=== PATIENT | male | born 1990 | race Caucasian/White ===

== ENCOUNTER 2016-07-05 15:40 | Emergency (ER) | payer BC ==
[~2016-07-05] VITALS: Ht 180.3 cm; Wt 84.8 kg
[2016-07-05 15:50] VITALS: TEMP 36.6; Ht 180.3 cm; Wt 84.8 kg
[2016-07-05] MEDS ORDERED: SODIUM CHLORIDE 0.9% 1000ML 1,000 ML IV STA ×3 (16:15→17:56)
[2016-07-05] MEDS ORDERED: INSPMPHMLG (16:19)
[2016-07-05] MEDS ORDERED: BENZ100C84 PO (16:19)
[2016-07-05] MEDS ORDERED: PRVHFAIN INH (16:19)
[2016-07-05] MEDS ORDERED: GUAI1SOL5 PO (16:19)
[2016-07-05] MEDS ORDERED: PRED10TA PO (16:19)
--- NOTE | 2016-07-05 16:26 | EMERGENCY ROOM VISIT NOTE ---
History Report prepared by Viviane: Wade Salcido Under the Supervision of: Dr. Joby Giraldo M.D. First contact with patient: 16:09 Chief Complaint: HYPERGLYCEMIA Stated Complaint: 400+ BLOOD SUGAR, CONSTANT THIRST/URINATION, COUGH Nursing Triage Summary: patient to ed via triage, states "I think I have DKA, my sugars are over three hundred all week, I can't et it down." Patient is type one diabetic, recently changed insulin pump, states "I don't think that is the problem, I just saw the doctor and they told me my sugars were going up and they just aren't controlled." Patient recently diagnosed with URI, states "I've been on a lot of meds for that." c/o thirst, urination, weakness History of Present Illness The patient is a 25 year old male who presents to the Emergency Room with complaints of hyperglycemia that began 1 week ago. The patient saw his PCP for an upper respiratory problem and cough last week. He was given Prednisone, a cough syrup, and an inhaler. Since he began taking these medications, his blood sugars have been above 300, when they are usually in the 100s. He has a history of Type 1 Diabetes for 14 years. He woke up today with a blood sugar level above 400. He notes that he changed his pump today, but states his sugar is still high. He notes that his cough is better. He is experiencing thirst, dryness, and frequent urination. He does not have a ketone grayson with him currently. He does not have a history of asthma. He has never had full blown DKA before. He stopped taking his Prednisone yesterday. Source of History: patient Onset: 1 week ago Position: other (global) Symptom Intensity: 400+ Quality: other (Hyperglycemia) Timing: worsening Associated Symptoms: + cough, + urinary symptoms (Frequent urination), No SOB Note: He is experiencing dryness and thirst. Review of Systems See HPI for pertinent positives & negatives. A total of 10 systems reviewed and were otherwise negative. Past Medical & Surgical Medical Problems: (1) Type 1 diabetes Family History Patient reports no known family medical history. Social History Smoking Status: Never Smoker Smokeless Tobacco Use: No Drug Use: none Marital Status: single Occupation Status: student Current/Historical Medications Scheduled Insulin Human Lispro (Insulin Humalog Pump ), 1 EA N/A UD Prednisone Tab (Prednisone), 10 MG PO UD Scheduled PRN Albuterol (Ventolin Hfa), 2 PUFFS INH Q4H PRN for Cough Benzonatate (Tessalon Perles), 100 MG PO TID PRN for Cough Guaifenesin-Codeine (Codeine/Guaifenesin 100-10 mg/5Ml), 5 ML PO Q4-6HRS PRN for Cough Allergies Coded Allergies: Amoxicillin (Verified Allergy, Intermediate, Hives, 07/05/16) Cefprozil (Verified Allergy, Intermediate, Hives, 07/05/16) Penicillins (Verified Allergy, Intermediate, Hives, 07/05/16) Physical Exam Vital Signs Date Time Temp Pulse Resp B/P Pulse Ox O2 Delivery O2 Flow Rate FiO2 07/05/16 19:18 77 16 126/76 98 07/05/16 18:00 73 16 126/76 97 Room Air 07/05/16 17:01 64 07/05/16 15:50 36.6 77 20 127/75 97 Room Air Physical Exam GENERAL: Patient is in no acute distress. HEENT: No acute trauma, normocephalic atraumatic, mucous membranes dry, no nasal congestion, no scleral icterus. NECK: No stridor, no adenopathy, no meningismus, trachea is midline. LUNGS: Clear to auscultation bilaterally, no wheeze, no rhonchi, breath sounds equal. HEART: Without murmurs gallops or rubs, regular rate and rhythm. ABDOMEN: Soft, nontender, bowel sounds positive, no hernias, no peritonitis. EXTREMITIES: No cyanosis or edema, full range of motion of all the joints without pain or difficulty, no signs for acute trauma. NEUROLOGIC: Oriented x 3, no acute motor or sensory deficits, no focal weakness. SKIN: No rash, no jaundice, no diaphoresis. Medical Decision & Procedures ER Provider Diagnostic Interpretation: X-ray results as stated below per interpretation by me and the radiologist: CHEST ONE VIEW PORTABLE HISTORY: EVALUATE ALTERED MENTAL STATUS/WEAKNESS COMPARISON: None. FINDINGS: The lungs are clear. Cardiac silhouette is normal in size. No pleural effusions. No pneumothorax. IMPRESSION: No acute process. Electronically signed by: Zafar Kapoor M.D. 07/05/2016 4:37 PM Dictated Date/Time: 07/05/2016 4:35 PM Laboratory Results 07/05/16 16:30 Red Blood Count 5.12, Mean Corpuscular Volume 89.5, Mean Corpuscular Hemoglobin 31.3, Mean Corpuscular Hemoglobin Concent 34.9, Mean Platelet Volume 9.4, Neutrophils (%) (Auto) 42.6, Lymphocytes (%) (Auto) 45.4, Monocytes (%) (Auto) 8.7, Eosinophils (%) (Auto) 2.7, Basophils (%) (Auto) 0.4, Neutrophils # (Auto) 2.19, Lymphocytes # (Auto) 2.34, Monocytes # (Auto) 0.45, Eosinophils # (Auto) 0.14, Basophils # (Auto) 0.02 07/05/16 16:30 Test 07/05/16 16:30 07/05/16 17:30 07/05/16 17:50 White Blood Count 5.15 K/uL (4.8-10.8) Red Blood Count 5.12 M/uL (4.7-6.1) Hemoglobin 16.0 g/dL (14.0-18.0) Hematocrit 45.8 % (42-52) Mean Corpuscular Volume 89.5 fL (80-100) Mean Corpuscular Hemoglobin 31.3 pg (25-34) Mean Corpuscular Hemoglobin Concent 34.9 g/dl (32-36) Platelet Count 491 K/uL (130-400) Mean Platelet Volume 9.4 fL (7.4-10.4) Neutrophils (%) (Auto) 42.6 % Lymphocytes (%) (Auto) 45.4 % Monocytes (%) (Auto) 8.7 % Eosinophils (%) (Auto) 2.7 % Basophils (%) (Auto) 0.4 % Neutrophils # (Auto) 2.19 K/uL (1.4-6.5) Lymphocytes # (Auto) 2.34 K/uL (1.2-3.4) Monocytes # (Auto) 0.45 K/uL (0.11-0.59) Eosinophils # (Auto) 0.14 K/uL (0-0.5) Basophils # (Auto) 0.02 K/uL (0-0.2) RDW Standard Deviation 37.4 fL (36.4-46.3) RDW Coefficient of Variation 11.5 % (11.5-14.5) Immature Granulocyte % (Auto) 0.2 % Immature Granulocyte # (Auto) 0.01 K/uL (0.00-0.02) Anion Gap 10.0 mmol/L (3-11) Est Creatinine Clear Calc Drug Dose 101.9 ml/min Estimated GFR () 98.2 Estimated GFR (Non- 84.7 BUN/Creatinine Ratio 19.3 (10-20) Calcium Level 8.5 mg/dl (8.5-10.1) Total Bilirubin 1.4 mg/dl (0.2-1) Aspartate Amino Transf (AST/SGOT) 8 U/L (15-37) Alanine Aminotransferase (ALT/SGPT) 22 U/L (12-78) Alkaline Phosphatase 86 U/L (45-117) Total Protein 7.4 gm/dl (6.4-8.2) Albumin 4.0 gm/dl (3.4-5.0) Globulin 3.4 gm/dl (2.5-4.0) Albumin/Globulin Ratio 1.2 (0.9-2) Beta-Hydroxybutyric Acid 24.90 mg/dL (0.2-2.81) Urine Color YELLOW Urine Appearance CLEAR (CLEAR) Urine pH 5.0 (4.5-7.5) Urine Specific Anza 1.031 (1.000-1.030) Urine Protein NEG (NEG) Urine Glucose (UA) 3+ (NEG) Urine Ketones 2+ (NEG) Urine Occult Blood NEG (NEG) Urine Nitrite NEG (NEG) Urine Bilirubin NEG (NEG) Urine Urobilinogen NEG (NEG) Urine Leukocyte Esterase NEG (NEG) Bedside Glucose 290 mg/dl (70-99) Laboratory results reviewed by me. Medications Administered Medications (Trade) Dose Ordered Sig/Marion Route Start Time Stop Time Status Last Admin Dose Admin Sodium Chloride 1,000 ml @ 999 mls/hr Q1H1M STAT IV 07/05/16 16:15 07/05/16 17:15 DC 07/05/16 16:15 999 MLS/HR Sodium Chloride (Nss 1000ml) 1,000 ml @ 200 mls/hr Q5H STAT IV 07/05/16 16:15 07/05/16 19:29 DC 07/05/16 17:18 200 MLS/HR Insulin Human Regular (novoLIN-R U-100 PER UNIT) 10 units NOW STAT IV 07/05/16 17:03 07/05/16 17:04 DC 07/05/16 17:21 10 UNITS Insulin Human Regular 8 units 8 units NOW STAT IV 07/05/16 17:54 07/05/16 17:55 DC 07/05/16 17:59 8 UNITS Sodium Chloride (Nss 1000ml) 1,000 ml @ 999 mls/hr Q1H1M STAT IV 07/05/16 17:56 07/05/16 18:56 DC 07/05/16 18:03 999 MLS/HR ED Course 1609: The patient was evaluated in room C3. A complete history and physical exam was performed. 1615: Ordered Sodium Chloride 1000 ml @ 200 mls/hr IV, Sodium Chloride 1000 ml @ 999 mls/hr IV 1703: Ordered Insulin Human Regular 10 units IV 1754: Ordered Insulin Human Regular 8 units IV 1756: Ordered Sodium Chloride 1000 ml @ 999 mls/hr IV. 1846: The patient's blood sugar is now 226. He feels improved. 1850: Reevaluated the patient. Discussed results and discharge instructions: He verbalized understanding and agreement. The patient is ready for discharge. Medical Decision Differential diagnosis includes but is not limited to DKA, hyperglycemia, dehydration, electrolyte imbalance, viral illness, and pneumonia. There is no leukocytosis or worrisome anemia. Renal panel testing does not demonstrate acidosis. Sugar was high in the 400 range. No hepatitis. Chest film did not show pneumonia or CHF. Urinalysis showed some moderate ketones, no infection. On exam, the patient did seem dehydrated. The patient was told to put his insulin pump on hold. He received 2 L of IV saline, he received 2 doses of IV insulin. His blood sugar by BSG is now 226. He feels markedly better. The patient is being discharged. He did restart his insulin pump while in the emergency room. He was told to stop the prednisone. He will return here if his sugars are not controlled at home. He will stay well-hydrated. I suspect the hyperglycemia was from the steroid use. Impression Primary Impression: Hyperglycemia Additional Impression: Dehydration Scribe Attestation The scribe's documentation has been prepared under my direction and personally reviewed by me in its entirety. I confirm that the note above accurately reflects all work, treatment, procedures, and medical decision making performed by me. Departure Information Dispostion Home / Self-Care Referrals No Doctor, Assigned (PCP) Forms HOME CARE DOCUMENTATION FORM, IMPORTANT VISIT INFORMATION, WORK / SCHOOL INSTRUCTIONS Patient Instructions My [facility] Additional Instructions keep watch on your sugars adjust insulin dosing as needed stay well hydrated stop the prednisone return if worsening as we discussed no pneumonia by chest film all other lab testing was ok Problem Qualifiers
--- NOTE | 2016-07-05 16:39 | DIAGNOSTIC IMAGING REPORT ---
CHEST ONE VIEW PORTABLE HISTORY: EVALUATE ALTERED MENTAL STATUS/WEAKNESS COMPARISON: None. FINDINGS: The lungs are clear. Cardiac silhouette is normal in size. No pleural effusions. No pneumothorax. IMPRESSION: No acute process. Electronically signed by: Zafar Kapoor M.D. 07/05/2016 4:37 PM Dictated Date/Time: 07/05/2016 4:35 PM
[2016-07-05 16:58] LABS: BASO % 0.4 %; BASO ABS # 0.02 K/uL (0-0.2); COMPLETE YES; EOS % 2.7 %; HEMATOCRIT 45.8 % (42-52); IG% 0.2 %; LYMPH % 45.4 %; LYMPH ABS # 2.34 K/uL (1.2-3.4); MEAN CELL VOLUME 89.5 fL (80-100); MEAN CORPUSCULAR HEMOGLOBIN 31.3 pg (25-34); MEAN CORPUSCULAR HGB CONC 34.9 g/dl (32-36); MEAN PLATELET VOLUME 9.4 fL (7.4-10.4); MONO % 8.7 %; NEUT % 42.6 %; PLATELET COUNT 491 K/uL (130-400); RED BLOOD COUNT 5.12 M/uL (4.7-6.1); WHITE BLOOD COUNT 5.15 K/uL (4.8-10.8)
[2016-07-05] MEDS ORDERED: NovoLIN-R INSULIN PER UNIT CHARGE IV STA ×2 (17:03→17:54)
[2016-07-05 17:45] LABS: ALB/GLOB RATIO 1.2 (0.9-2); BUN/CREATININE RATIO 19.3 (10-20); CALCIUM 8.5 mg/dl (8.5-10.1); CREATININE 1.2 mg/dl (0.60-1.40); POTASSIUM 4.3 mmol/L (3.5-5.1)
[2016-07-05 17:51] LABS: URINE APPEARANCE CLEAR (CLEAR); URINE BILIRUBIN NEG (NEG); URINE COLOR YELLOW; URINE NITRITE NEG (NEG); URINE SPECIFIC GRAVITY 1.031 (1.000-1.030); UROBILINOGEN NEG (NEG)
[2016-07-05 17:52] LABS: MANUAL MICROSCOPIC REQUIRED? NO; REVIEW REQ? NO
[2016-07-05 17:58] LABS: BETA-HYDROXYBUTYRATE 24.9 mg/dL (0.2-2.81)
[2016-07-05 19:18] VITALS: BP 126/76; PULSE 77; O2SAT 98
== END 2016-07-05 19:19 | disposition home or self-care (01) ==
LOC: C.EDB 15:43 → C.EDC 19:19
DX: E10.65 Type 1 diabetes mellitus with hyperglycemia (principal); E86.0 Dehydration; Z79.4 Long term (current) use of insulin; Z96.41 Presence of insulin pump (external) (internal)